=== PATIENT | female | born 1965 | race Asian ===

== ENCOUNTER 2022-08-12 15:14 | Emergency (ER) | payer MEDICAID ==
[~2022-08-12] VITALS: Ht 167.6 cm; Wt 59.0 kg
[2022-08-12 15:26] VITALS: BP_SYST 139
--- NOTE | 2022-08-12 15:37 | NUR ---
PT BIB SELF ALONG SIDE WITH DAUGHTER C/O OF RIGHT SIDED CHEST PAIN AFTER LIFTING UP HER GRANDSON. PT COMPLAIN OF 8 OUT OF 10 PAIN. PT TOOK MOTRIN FOR THE PAIN BUT IS STILL COMPLAINING OF 8 OUT OF 10 PAIN. EKG DONE AT BEDSIDE NSR. PT DENIES SOB, N/V/D, URINARY OR BOWEL ISSUES. PT SLIN IS WARM TO TOUCH AND PT IS AOX4.
--- NOTE | 2022-08-12 15:44 | NUR ---
ER at bedside examining patient.
--- NOTE | 2022-08-12 15:48 | NUR ---
CHEST X-RAY AT BEDSIDE.
[2022-08-12] MEDS ORDERED: NAPR-690 PO (16:02)
[2022-08-12] MEDS ORDERED: LIDO1ADH77 TP (16:02)
--- NOTE | 2022-08-12 16:33 | NUR ---
Note undone in EDM - 08/12/22 at 1635 by [email or web address] Patient given written and verbal discharge instructions and verbalizes understanding. ER discussed with patient the results and treatment provided. Patient in stable condition. ID arm band removed. Rx of Lidocaine and Naproxen given. Patient educated on pain management and to follow up with PMD. Pain Scale 2/10. Opportunity for questions provided and answered. Medication side effect fact sheet provided.
--- NOTE | 2022-08-12 16:34 | NUR ---
Patient given written and verbal discharge instructions and verbalizes understanding. ER MD discussed with patient the results and treatment provided. Patient in stable condition. ID arm band removed. Rx of Lidocaine and Naproxen given. Patient educated on pain management and to follow up with PMD. Pain Scale 2/10 . Opportunity for questions provided and answered. Medication side effect fact sheet provided.
[2022-08-12 16:44] VITALS: BP_SYST 138
== END 2022-08-12 15:59 | disposition left against medical advice (07) ==
LOC: SED 15:14
DX: R07.89 Other chest pain (principal); Z79.899 Other long term (current) drug therapy
CPT/HCPCS: 71045; 99283

== ENCOUNTER 2022-10-21 16:43 | Emergency (ER) | payer MEDICAID ==
[~2022-10-21] VITALS: Ht 167.6 cm; Wt 62.1 kg
[~2022-10-21 16:43] MED LIST: LIDO1ADH77 TP; NAPR-690 PO
[2022-10-21 16:56] VITALS: BP_SYST 117; PULSE 62; RESP 18; TEMP 98.1; O2SAT 98
[2022-10-21 18:10] LABS: BASOPHILS % (AUTO) 0.5 % (0.0-2.0); EOSINOPHILS # (AUTO) 0.2 K/uL (0.0-0.4); EOSINOPHILS % (AUTO) 3.4 % (0.0-4.0); HEMATOCRIT 37.2 % (36-48); LYMPHOCYTES # (AUTO) 2.6 K/uL (1.0-5.5); LYMPHOCYTES % (AUTO) 44.2 % (20.5-51.5); MEAN CORPUSCULAR HEMOGLOBIN 29 pg (27-31); MEAN CORPUSCULAR HGB CONC 32 % (32-36); MEAN CORPUSCULAR VOLUME 90 fL (79.0-98.0); MONOCYTES # (AUTO) 0.4 K/uL (0.0-1.0); MONOCYTES % (AUTO) 6.6 % (1.7-9.3); NEUTROPHILS # (AUTO) 2.6 K/uL (1.8-7.7); NEUTROPHILS % (AUTO) 45.3 % (40.0-70.0); PLATELET COUNT (AUTO) 232 K/uL (130-430); RED BLOOD CELL COUNT(AUTO) 4.12 MIL/uL (4.2-6.2); RED CELL DISTRIBUTION WIDTH 13.4 % (9.0-15.0); WHITE BLOOD COUNT (AUTO) 5.8 K/uL (4.8-10.8)
[2022-10-21 18:41] LABS: CALCIUM 8.6 mg/dL (8.4-11.0); CREATININE 0.63 mg/dL (0.55-1.30); POTASSIUM 3.9 mmol/L (3.5-5.1)
[2022-10-21 18:43] LABS: ALBUMIN 3.7 g/dL (3.4-4.8); TOTAL BILIRUBIN 0.5 mg/dL (0.0-1.0); TOTAL PROTEIN, SERUM 7.2 g/dL (6.4-8.3)
[2022-10-21 19:16] VITALS: BP_SYST 137; PULSE 50; RESP 16; TEMP 98.7; O2SAT 97
== END 2022-10-21 19:16 | disposition home or self-care (01) ==
LOC: SED 16:43
DX: R53.1 Weakness (principal); Z79.899 Other long term (current) drug therapy
CPT/HCPCS: 36415; 70450-TC; 72125-TC; 76376; 80053; 83735; 85025; 93005; 99284